=== PATIENT | female | born 1975 | race African-American/Black ===

== ENCOUNTER 2017-11-28 02:16 | Emergency (ER) | payer MEDICAID ==
[~2017-11-28] VITALS: Ht 165.1 cm; Wt 99.8 kg
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
--- NOTE | 2017-11-28 03:20 | NUR ---
CAREER ORIENTATION TEACHER JUANA # [id number] REMAINS AT [facility] WITH PATIENT AT THIS TIME.
--- NOTE | 2017-11-28 03:30 | NUR ---
Patient discharged to home in stable conditon. Written and verbal after care instructions given. Patient verbalizes understanding of instructions. Patient able to ambulate unassisted with a steady gait. Patient left with all personal belongings. Patient left in [employer] custody.
[2017-11-28 05:43] VITALS: BP 132/84
== END 2017-11-28 03:30 ==
LOC: ER 02:21
DX: T74.21XA Adult sexual abuse, confirmed, initial encounter (principal); F17.200 Nicotine dependence, unspecified, uncomplicated; Z59.0 Homelessness
CPT/HCPCS: A4663